=== PATIENT | female | born 1955 | race Caucasian/White ===

== ENCOUNTER 2021-01-29 17:40 | Emergency (ER) | payer MEDICARE | END 2021-01-29 18:39 | disposition home or self-care (01) | LOC: CSHERS 17:40 | DX: U07.1 COVID-19 (principal); I83.91 Asymptomatic varicose veins of right lower extremity | CPT/HCPCS: 99281 ==

== ENCOUNTER 2022-12-21 10:12 | Outpatient (CLI) | payer MEDICARE, OTHER | END 2022-12-21 10:13 | disposition home or self-care (01) | LOC: CSHMAMMO 10:12 | PROVIDERS: ATTEND Obstetrics & Gynecology | DX: Z12.31 Encounter for screening mammogram for malignant neoplasm of breast (principal); Z80.3 Family history of malignant neoplasm of breast | CPT/HCPCS: 77063; 77067 ==

== ENCOUNTER 2023-12-23 13:54 | Outpatient (CLI) | payer MEDICARE, OTHER | END 2023-12-23 13:55 | disposition home or self-care (01) | LOC: CSHMAMMO 13:54 | PROVIDERS: ATTEND Obstetrics & Gynecology | DX: Z12.31 Encounter for screening mammogram for malignant neoplasm of breast (principal); Z80.3 Family history of malignant neoplasm of breast | CPT/HCPCS: 77063; 77067 ==